=== PATIENT | male | born 1925 | race Caucasian/White ===

== ENCOUNTER → 2016-11-30 | Outpatient (CLI) | payer OTHER ==
[~2016-11-30] MED LIST: CITA40TA4 PO; DFL100 PO; DIAZ2TAB PO; DUTA0.5C PO; FLM4 PO; FLUO20CA35 PO; GENT0.3S6 OP; GLC/500 PO; LISI10TA PO; LORA10CA2 PO; LUTE15CA PO; LVQ500 PO; MORP15TA PO; MRLP17X PO; MTR500 PO; MULT-610 PO; OMEP40CA41 PO; ONDA8TAB62 SL; PRED-301 PO; SIMV10TA2 PO; zpack
--- NOTE | 2016-11-30 12:59 | DIAGNOSTIC IMAGING REPORT ---
BILATERAL CAROTID DOPPLER STUDY HISTORY: NEOPLASM OF PAROTID GLAND COMPARISON: None. TECHNIQUE: Real-time, grayscale, and color Doppler sonography of the carotid arteries was performed. Imaging reviewed in the transverse and longitudinal planes. All measurements were calculated based on NASCET criteria. FINDINGS: Antegrade flow is seen in the bilateral vertebral arteries. The brachial pressures are hemodynamically similar. Moderate plaque formation bilaterally The peak systolic velocity within the right ICA is 76. The right systolic ratio is 0.9. The peak systolic velocity within the left ICA is 79. The left systolic ratio is 1.0. IMPRESSION: No hemodynamically significant stenosis seen within the carotid arteries. Mild plaque formation bilaterally Electronically signed by: Naveen South M.D. 11/30/2016 12:58 PM Dictated Date/Time: 11/30/2016 12:57 PM
--- NOTE | 2016-12-06 07:40 | CODING QUERY MEDICAL NECESSITY ---
SUPPORTING DIAGNOSIS NEEDED A supporting diagnosis is required for the test/procedure performed on this patient in order for us to be reimbursed by the patient's insurance. Please provide a supporting diagnosis for the following test/procedure listed below next to the test name along with your signature. *If there is no additional diagnosis for this patient that would support the following test/procedure please document that below next to the test/procedure. Test(s)/Procedure(s) that require a supporting diagnosis: * CAROTID DOPPLER DUPLEX NECK DIAGNOSIS: * DOS: 11/30/16 Provider Signature: Date: Thank you Rubia Wyman Health Information Management Once completed, please kindly fax back to [phone] For questions please call [phone]
== END | disposition home or self-care (01) ==
LOC: C.ULTR 12:14
PROVIDERS: ATTEND Radiology Radiation Oncology
DX: C07 Malignant neoplasm of parotid gland (principal)

== ENCOUNTER 2017-01-11 11:57 | Inpatient (IN) | payer OTHER ==
[~2017-01-11] VITALS: Ht 175.3 cm; Wt 63.7 kg
[~2017-01-11 11:57] MED LIST changes: -DFL100 PO; -GENT0.3S6 OP; -LVQ500 PO; -MORP15TA PO; -MRLP17X PO; -MTR500 PO; -OMEP40CA41 PO; -ONDA8TAB62 SL; -PRED-301 PO
[2017-01-11 13:05] VITALS: BP 133/85; PULSE 86; TEMP 36; O2SAT 96; BMI 21.3
[2017-01-11] MEDS ORDERED: ONDANSETRON INJ 2 MG/ML 2 ML VIAL IV PRN (14:30)
[2017-01-11] MEDS ORDERED: ACETAMINOPHEN 325 MG TAB PO PRN (14:30)
[2017-01-11] MEDS ORDERED: POLYETHYLENE (MIRALAX) 17 GM PACK PO PRN (14:30)
[2017-01-11] MEDS ORDERED: MAGNESIUM HYDROXIDE SUSP 30 ML UDC PO PRN (14:30)
[2017-01-11] MEDS ORDERED: SODIUM CHLORIDE 0.9% 500ML 500 ML IV STA (14:53)
[2017-01-11] MEDS ORDERED: MAGIC SWIZZLE PO SCH (15:00)
--- NOTE | 2017-01-11 15:15 | History and Physical ---
History & Physical Date & Time of Service: Jan 11, 2017 at 14:56 Chief Complaint: Orthostatic Hypotension, Failure To Thrive Primary Care Physician: Tayla Leggett C.R.N.P. History of Present Illness Source: patient, family, clinic records, hospital records This patient is a pleasant 89-year-old male that is directly admitted to the hospital from his primary care physician's office with decreased appetite and weight loss. The patient reports losing about 30 pounds over the last few weeks. He says that he just does not have an appetite. Nothing seems to taste good. Patient also notes throat discomfort, which is also impeding his diet. The patient has a history of adenocarcinoma of the right parotid gland and also a mass on the right side of his nose. He has had this mass on the right side of his nose for approximately 20 years. He was told that it would be slow growing. The mass has now completely invaded the right nostril and is pushing on the left. The patient cannot breathe at all out of his nose. He has a difficult time eating because of this. The patient's family notes that he has been choking trying to eat. He denies any fever or chills. No cough. Denies any nausea or vomiting. No changes in bowel habits. Approximately 2 months ago , the patient was evaluated in the emergency department for epistaxis. He was seen by ENT. It was recommended that he be transferred to a tertiary care center. The patient underwent a biopsy at that time that confirmed his diagnosis. Postoperatively, the patient had urinary retention. He denies any difficulty urinating now. He denies any hematuria. He does note intermittent bleeding from the left nare. 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 Reportedly of old age. 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.) Allergies Coded Allergies: Penicillins (Unverified Allergy, Unknown, Swells up, 09/05/16) Home Medications Scheduled Diazepam (Valium), 2.5 MG PO BID Dutasteride (Avodart), 1 CAP PO HS Fluoxetine (Prozac), 60 MG PO HS Lisinopril (Prinivil), 10 MG PO DAILY Lutein-Zeaxanthin (Lutein), 1 CAP PO DAILY Metformin Hcl (Glucophage), 250 MG PO BID Simvastatin (Zocor), 1 TAB PO HS Tamsulosin HCl (Tamsulosin HCl), 0.4 MG PO DAILY Review of Systems 10 system review performed and negative unless noted in HPI or below Physical Exam Vital Signs Date Time Temp Pulse Resp B/P Pulse Ox O2 Delivery O2 Flow Rate FiO2 01/11/17 13:05 36.0 86 16 133/85 96 Room Air VITALS: Vitals are noted on the nurse's note and reviewed by myself. Vital signs stable. GENERAL: 89-year-old male, resting in bed. SKIN: The skin was warm and dry HEAD: Normocephalic atraumatic. EYES: Purulent discharge noted from the eyes bilaterally. Conjunctivae injected bilaterally. NOSE: Very large mass noted on the right nostril extending through the septum to the left nostril. Neither nares patent. Some bloody discharge noted MOUTH: Mucous membranes very dry. White plaque noted on the hard and soft palate. Erythema noted. NECK: Large right-sided mass noted on the right lateral neck. Firm, nonmobile. HEART: Regular rate and rhythm without murmurs gallops or rubs. LUNGS: Clear to auscultation bilaterally without wheezes, rales or rhonchi. No accessory muscle use. ABDOMEN: Positive bowel sounds x 4.Soft, nontender, without organomegaly. No guarding or rebound tenderness. MUSCULOSKELETAL: No erythema, edema or tenderness noted in the lower extremities bilaterally. Strength 5/5 throughout. NEURO: Patient was alert and oriented to person place and time. Normal sensation to touch. No focal neurological deficits. Diagnostics Diagnostic Radiology CHEST 2 VIEWS ROUTINE HISTORY: COUGH,NAUSEA,MALAISE,FATIGUE COMPARISON: None. FINDINGS: The lungs are hyperexpanded with mild apical predominant emphysematous changes. The heart is normal in size. Tortuous thoracic aorta. S-shaped scoliosis of the thoracolumbar spine. No pleural effusions. No pneumothorax. Mild interstitial thickening at the lung bases is likely chronic. Linear scarlike density overlying the right hilum. Symmetric nodular densities at the periphery of the lung bases favor nipple shadows. IMPRESSION: Chronic changes as described above. No acute process within the chest. Electronically signed by: Dusty Robles M.D. 01/11/2017 12:44 PM Dictated Date/Time: 01/11/2017 12:40 PM The status of this report is Signed. Draft = Not yet reviewed or approved by Radiologist. Signed = Reviewed and approved by Radiologist. <AttendingPhy>Tayla Leggett C.R.N.P.</AttendingPhy> <FamilyPhy>Tayla Leggett C.R.N.P.</FamilyPhy> <PrimaryPhy>Tayla Leggett C.R.N.P.</ PrimaryPhy> <UnitNumber>[id number]</UnitNumber> <VisitNumber>[id number]</ VisitNumber> <PatientName>POOL RIVAS</PatientName> <DateOfBirth>1925</ DateOfBirth> <Location>[facility]</Location> <ServiceDate>01/11/17</ServiceDate> <MNE >ESINDI</MNE> <OrderingPhy>Tayla Leggett.R.N.P.</OrderingPhy> < OrderingPhyMNE>f rep ord dr sahu</OrderingPhyMNE> <DictatingPhyMNE>f rep dict dr sahu</DictatingPhyMNE> <CCListMNE>f rep ct mne</CCListMNE> <AdmittingPhyMNE>f pt admit dr sahu</AdmittingPhyMNE> <AttendingPhyMNE>f pt attend dr sahu</ AttendingPhyMNE> Impression Assessment and Plan 89-year-old male with a history of adenocarcinoma of the right nose and right parotid gland presents with weight loss and failure to thrive at home Weight loss/poor appetite-likely secondary to discomfort with eating -Admit to oncology floor -CBC, CMP and magnesium -Speech evaluate and treat -Magic swizzle every 4 hours -Pured diet for now -Rule out infectious sources such as UTI White plaque on the palate-? Meg versus excoriation from radiation -Consider starting fluconazole 400 mg x 1 then 200 mg daily x 14 days HTN -Continue lisinopril 10 mg daily diabetes mellitus -Continue Metformin 250 mg po BID -follow BSGs AC, HS and with meals -insulin sliding scale Parotid/Nasal adenoCA -palliative care consult -ENT consult to see if there is anything to do about epistaxis Conjunctivitis -begin Erythromycin drops TID Depression -Continue Prozac 60 HS -Valium 2.5 mg po BID Urinary retention -Continue Avodart 0.5 mg daily DVT prophylaxis -chemical means contraindicated due to risk of epistaxis -TEDS, SCDs CODE STATUS -LEVEL I FULL CODE Level of Care Oncology Advanced Directives Existing Living Will: Yes Existing Power of Nutrition Program Instructor: Yes Resuscitation Status DO NOT RESUSCITATE VTE Prophylaxis VTE Risk Assessment Done? Y/N: Yes Risk Level: Low Given or contraindicated: T.ELataDLata Stockings, SCD's, Contraindicated Assessment and Plan Attending Addendum: I have physically seen and examined this patient, have directed their medical care, have supervised the PA's activity, and agree with the H&P as noted above, with the following changes: NONE. The patient is awake, alert and oriented 3, lying in bed and in no acute distress. HEENT--PERRL, enlarged right parotid gland, severely enlarged bulbous lesion right side of nose. Neck-- no JVD or bruits, thyroid normal, enlarged anterior cervical lymph nodes and enlarged parotid gland. Heart--normal S1 and S2, no extra beats, no murmurs, rubs or gallops. Lungs--clear bilaterally with good air movement, no respiratory distress, no accessory muscle use. Abdomen--normal bowel sounds and soft, nontender and nondistended, no hernias or masses, no organomegaly. Extremities--no cyanosis, clubbing or edema. There are good distal pulses b/l. Dermatologic--normal skin turgor, normal color, warm and dry, no abnormal lymph nodes, no rash. Neurologic--cranial nerves II through XII grossly intact, motor and sensory examination normal. Rheumatologic--normal range of motion, nontender, muscles and joints. Psychiatric--normal affect. 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 We'll consult ENT as family would like to know if there is anything that can be done to help prevent bleeding. We 'll order a palliative care consult as well. Patient has been offered surgery and chemotherapy in the past, and has refused both. He'll being covered empirically for accompanying infectious process with Vanco IV, cefepime IV and fluconazole IV. Hypertension--continue lisinopril 10 mg by mouth daily with hold parameters. Diabetes mellitus --hold metformin. Placement Accu-Cheks before meals and at bedtime with NovoLog coverage. Depression--continue Prozac 60 mg by mouth at bedtime and Valium 2.5 mg by mouth twice a day. BPH--continue Avodart 0.5 mg by mouth daily.
[2017-01-11 15:59] VITALS: BP 119/81; PULSE 88; TEMP 36.7; O2SAT 97
[2017-01-11] MEDS ORDERED: OPTIRAY 320 IV PRN (16:00)
[2017-01-11] MEDS ORDERED: VANCOMYCIN CONSULT ACTIVE PRN (16:00)
[2017-01-11] MEDS ORDERED: CEFEPIME CONSULT ACTIVE PRN ×2 (16:00)
[2017-01-11] MEDS: LIDOCAINE HCL 2% VISCOUS SOLN 60 ML, DiphenhydrAMINE HCL SYRUP 150 MG, ALUMINUM/MAGNESI... MT SCH ×8 (16:07→19:37)
[2017-01-11] MEDS: FLUCONAZOLE / NSS 200 MG in PREMIXED NSS 100 ML IV SCH (16:07)
--- NOTE | 2017-01-11 16:29 | Pharmacy Progress Note ---
Pharmacy Antibiotic Consult Date of Service: Jan 11, 2017. Pharmacy Dosing Scope Pharmacy is consulted to initiate Vancomycin + Cefepime IV dosing therapy, order appropriate labs and adjust drug dose/frequency. Subjective The patient is a 89 year old male admitted on Jan 11, 2017 at 12:38 with weight loss and poor appetite in the setting of adenocarcinoma of the right nasal and parotid gland. PMH significant for HTN and DM. Objective Height (Feet): 5 Height (Inches): 8.00 Weight (Kilograms): 63.400 Assessment & Plan Assessment 89 year old male ordered empiric antibiotics for treatment of possible EENT infection in the setting of nasal/parotid adenocarcinoma. Patient is afebrile with normal WBC count. Plan Vancomycin + Cefepime Vancomycin IV dosing * Loading dose: 1600 mg (25 mg/kg) IV * Maintenance dose: 1100 mg (17.3 mg/kg) IV every 24 hours * Goal trough level estimate for empiric treatment: between 15 - 20 mcg/mL. * Trough level has been ordered for: . Cefepime * Dose of 2g IV every 12 hours reduced to 2g IV every 24 hours for CrCl 30-60 mL /min. Pharmacy will continue to follow and will adjust dose/frequency as necessary. Thank you
--- NOTE | 2017-01-11 16:42 | ENT CONSULTATION ---
DATE OF CONSULTATION: 01/11/2017 DATE OF CONSULTATION: 01/11/2017. 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 HISTORY OF PRESENT ILLNESS: The patient complained of nasal obstruction after recent radiation treatment for his diagnosed adenocarcinoma of the right parotid after excision of benign mixed tumor 40 years ago in [place]. Ten years ago he developed a growth right side of nose, never excised, now occludes the right nostril. He now has recurrent epistaxis, saw another ENT here last time, now admitted for epistaxis and refuses any sort of surgery per him and . PAST MEDICAL HISTORY: Macular degeneration. ALLERGIES: PENICILLIN. FAMILY HISTORY: Negative. SOCIAL HISTORY: Former smoker. MEDICATIONS: As noted on chart. PHYSICAL EXAMINATION: GENERAL: Elderly male who is alert, oriented and cooperative in no acute distress. He does have nasal obstruction and breathing through his mouth. HEAD: Normocephalic. EYES: Normal. EARS: The right side shows a large parotid mass involving the right mandible. The right naris has a large mass extending through the right nasal bone and extending into the nasal cavity. He also has severe crusting and obstruction of the left naris. 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 Second lesion in right nasal cavity. RECOMMENDATIONS: Evidently, the patient is getting a CT scan. I will review the CT scan. At this point, I can actually make epistaxis worse by any kind of surgical intervention, so no surgical intervention is contemplated. ERICKA
[2017-01-11] MEDS: SODIUM CHLORIDE 0.9% 1000ML 1,000 ML IV SCH (16:56)
[2017-01-11] MEDS ORDERED: CEFEPIME IV 2,000 MG in DEXTROSE 5% 100ML 100 ML IV SCH (17:00)
[2017-01-11] MEDS ORDERED: METFORMIN HCL 500 MG TAB PO SCH (17:00)
--- NOTE | 2017-01-11 17:14 | DIAGNOSTIC IMAGING REPORT ---
CT OF THE HEAD WITH AND WITHOUT CONTRAST CLINICAL HISTORY: Parotid and nasal cavity pleomorphic adenoma TECHNIQUE: Axial images of the head were obtained before and after intravenous ministration of 116 cc Optiray 320 IV. COMPARISON STUDY: MRI of the brain September 09, 2016. FINDINGS: No acute intracranial hemorrhage, midline shift or mass effect is present. Ventricular system is stable. The basilar cisterns are patent. There are no extra-axial collections. There are no findings to suggest acute dural sinus thrombosis or acute territorial infarct. Bony erosion of right skull base foramina is noted, as shown on MRI of September 09, 2016. There is intracranial extension of tumor which is better depicted on the neck CT. As before, the right mastoid air cells are opacified. No parenchymal metastases are identified. A 1.7 x 0.7 cm right frontotemporal scalp lesion is unchanged. IMPRESSION: 1. No acute intracranial findings. 2. Redemonstration of bony erosion of right skull base foramina with intracranial extension of tumor, as shown on MRI of September 09, 2016. This is better depicted on the neck CT. Please see that report for further description. 3. Opacified right mastoid air cells, unchanged since prior MRI. Electronically signed by: Aime Polk M.D. 01/11/2017 5:13 PM Dictated Date/Time: 01/11/2017 5:03 PM
--- NOTE | 2017-01-11 17:21 | DIAGNOSTIC IMAGING REPORT ---
CT OF THE NECK WITH CONTRAST CT DOSE: 1387.07 mGy.cm CLINICAL HISTORY: Parotid and nasal cavity pleomorphic adenoma TECHNIQUE: Axial images of the neck were obtained following intravenous injection of 116 cc Optiray 320 IV. COMPARISON STUDY: MRI September 09, 2016. FINDINGS: Multiple enhancing masses within and adjacent to the right parotid gland are noted. The majority of these have slightly decreased in size since MRI of September 09, 2016. The dominant mass measures 3.5 x 3 cm. It previously measured 3.7 x 3.2 cm. Additional lesions have slightly decreased in size and enhancement since prior MRI allowing for differences in technique. Extension through the right skull base foramina into the right middle cranial fossa is again noted. There is associated bony destruction which was shown on prior MRI. The bulk of the tumor has likely slightly diminished since prior exam. A 4 x 3.9 cm mass arising from the right aspect of the nose is similar in size to prior exam. Several small enhancing right-sided cervical lymph nodes are similar to prior MRI. Emphysema is noted within the lung apices. Visualized portions of the airway are patent. There are no suspicious osseous lesions. Major vasculature of the neck is patent although the right internal jugular vein is narrowed in portions. IMPRESSION: 1. Numerous enhancing masses within and adjacent to the right parotid gland consistent with malignancy. The dominant mass has slightly decreased in size and enhancement since MRI of September 09, 2016. Redemonstration of bony erosion with intracranial extension through right skull base foramina into the middle cranial fossa, as shown on MRI. 2. No significant change in the destructive mass involving the right aspect of the nose. Electronically signed by: Aime Polk M.D. 01/11/2017 5:20 PM Dictated Date/Time: 01/11/2017 5:13 PM
[2017-01-11] MEDS ORDERED: VANCOMYCIN INJ 1,600 MG in SODIUM CHLORIDE 0.9% 500ML 500 ML IV ONE (17:30)
[2017-01-11] MEDS: INSULIN ASPART 100 UNITS/ML 3 ML PEN SC SCH ×2 (18:00→20:53)
[2017-01-11] MEDS ORDERED: NURSING VERBAL MED ORDER ONE (18:30)
[2017-01-11] MEDS: SILVER SULFADIAZINE 1% EXT SCH (19:37)
[2017-01-11] MEDS: ERYTHROMYCIN OP OINT 1 GM PKT OP SCH (19:38)
[2017-01-11 20:21] VITALS: BP 132/81; PULSE 83; TEMP 37.2; O2SAT 95
[2017-01-11] MEDS: DUTASTERIDE TAMSULOSIN HCL PO SCH (20:55)
[2017-01-11] MEDS: SIMVASTATIN 10 MG TAB PO SCH (20:55)
[2017-01-11] MEDS: FLUOXETINE HCL 20 MG CAP PO SCH (20:55)
[2017-01-11] MEDS: DIAZEPAM 5MG TAB PO SCH (20:56)
[2017-01-12 00:31] VITALS: BP 166/99; PULSE 94; TEMP 37; O2SAT 96
[2017-01-12] MEDS: SODIUM CHLORIDE 0.9% 1000ML 1,000 ML IV SCH (01:17)
[2017-01-12 04:37] VITALS: BP 91/57; PULSE 88; TEMP 36.8; O2SAT 94
[2017-01-12 06:22] VITALS: BMI 21.5
[2017-01-12] MEDS: INSULIN ASPART 100 UNITS/ML 3 ML PEN SC SCH ×4 (06:30→21:00)
[2017-01-12 07:24] VITALS: BP 145/95; PULSE 90; TEMP 36.7; O2SAT 95
[2017-01-12] MEDS: DIAZEPAM 5MG TAB PO SCH ×2 (08:00→19:47)
[2017-01-12] MEDS ORDERED: TAMSULOSIN HCL 0.4 MG CAP PO SCH (08:00)
--- NOTE | 2017-01-12 08:40 | Clinical Documentation Query ---
CLINICAL DOCUMENTATION QUERY 89-year-old male that is directly admitted to the hospital from his primary care physician's office with decreased appetite and weight loss. In your clinical opinion is this patient being managed for: ( x ) Severe malnutrition in setting of adenocarcinoma of the right nose, jaw, and right parotid gland ( ) Other explanation of clinical findings (Please Explain) ( ) Unable to determine (Please Define) ( ) Need to Discuss ( ) Not Agree The medical record reflects the following clinical findings, treatment, and risk factors. Clinical Indicators: The patient reports losing about 30 pounds over the last few weeks (17.6% loss of starting body weight). He says that he just does not have an appetite. Nothing seems to taste good. Patient also notes throat discomfort, which is also impeding his diet. Treatment: Full liquid diet, ENT consult, Speech therapy consult Risk Factors: Cancer Please clarify and document your clinical opinion in the progress notes and discharge summary. Terms such as "probable", "suspected", "likely", "questionable", "possible", or "still to be ruled out" are acceptable. IF IN AGREEMENT, YOU MUST DOCUMENT ABOVE DIAGNOSTIC STATEMENT IN DAILY PROGRESS NOTES AND DISCHARGE SUMMARY. This document is not part of the patient's record. Malnutrition Characteristics (2 of 6) in Acute Illness/Injury CHARACTERISTICS MODERATE MALNUTRITION SEVERE MALNUTRITION ENERGY INTAKE <75% of estimated energyrequirement for >7 days <50% of estimated energyrequirement for >5 days WEIGHT LOSS 1-2%/1 week 5%/1 month 7.5%/3 months >1-2%/1 week >5%/1 month >7.5%/3 months BODY FAT*loss of SQ fat from the orbits,triceps, or fat overlying the ribs MILD MODERATE MUSCLE MASS*muscle wasting at the temples,clavicles, shoulders, interosseousspaces,scapula, thigh, calf MILD MODERATE FLUID ACCUMULATION*localized or generalized edemaof the extremities, vulva, scrotumweight loss may be masked byedema MILD MODERATE-SEVERE [employer]ODUCT [employer]ELOPMENT MANAGER STRENGTH N/A measurably decreased perthe device's standards Thank You, Adryan English, RN [phone]
[2017-01-12] MEDS: LISINOPRIL 10 MG TAB PO SCH (08:55)
[2017-01-12] MEDS: SILVER SULFADIAZINE 1% EXT SCH ×3 (08:56→19:42)
[2017-01-12] MEDS: ERYTHROMYCIN OP OINT 1 GM PKT OP SCH ×3 (08:57→19:43)
[2017-01-12] MEDS: LIDOCAINE HCL 2% VISCOUS SOLN 60 ML, DiphenhydrAMINE HCL SYRUP 150 MG, ALUMINUM/MAGNESI... MT SCH ×16 (09:06→19:42)
[2017-01-12] MEDS ORDERED: METRONIDAZOLE 500MG / NSS IV ONE (12:30)
[2017-01-12 13:40] LABS: URINE APPEARANCE CLEAR (CLEAR); URINE BILIRUBIN NEG (NEG); URINE COLOR YELLOW; URINE NITRITE NEG (NEG); URINE SPECIFIC GRAVITY 1.005 (1.000-1.030); UROBILINOGEN NEG (NEG)
[2017-01-12 13:44] LABS: MANUAL MICROSCOPIC REQUIRED? NO; REVIEW REQ? NO
--- NOTE | 2017-01-12 14:09 | Hospitalist Progress Note ---
Hospitalist Progress Note Date of Service Jan 12, 2017. (Brittaney Macias PA-C) Subjective Pt evaluation today including: conversation w/ patient, conversation w/ family , physical exam, chart review, lab review, review of studies, review of inpatient medication list Appetite is still poor. Throat pain is slightly better. Does admit to occasional nausea. No shortness of breath. Denies any other pain besides the throat. Denies fever or chills. Notes some blood seeping from the left naris Additional Comments: 6 system review negative. Please see pertinent positives in the history of present illness section. (Brittaney Macias PA-C) Objective Vital Signs Date Time Temp Pulse Resp B/P Pulse Ox O2 Delivery O2 Flow Rate FiO2 01/12/17 08:00 Room Air 01/12/17 07:24 36.7 90 16 145/95 95 Room Air 01/12/17 04:37 36.8 88 18 91/57 94 Room Air 01/12/17 00:31 37.0 94 18 166/99 96 Room Air 01/12/17 00:00 Room Air 01/11/17 20:21 37.2 83 18 132/81 95 Room Air 01/11/17 20:00 Room Air 01/11/17 15:59 36.7 88 18 119/81 97 Room Air (Brittaney Macias PA-C) Physical Exam General Appearance: + mild distress (mildly uncomfortable), + cachetic Eyes: + pertinent finding (less drainage in redness noted to the eyes bilaterally.) ENT: + pertinent finding (very small amount of bleeding noted from the left naris) Neck: + pertinent finding (Mass to the right lateral neck unchanged) Respiratory/Chest: lungs clear Cardiovascular: regular rate, rhythm Abdomen: normal bowel sounds, non tender, soft Extremities: non-tender, no pedal edema Neurologic/Psychiatric: oriented x 3 Skin: warm/dry (Brittaney Macias PA-C) Laboratory Results 01/12/17 05:16 Test 01/12/17 05:16 01/12/17 11:34 01/12/17 13:15 Est Creatinine Clear Calc Drug Dose 44.9 ml/min Estimated GFR () 77.0 Estimated GFR (Non- 66.4 Bedside Glucose 114 mg/dl (70-99) Urine Color YELLOW Urine Appearance CLEAR (CLEAR) Urine pH 7.0 (4.5-7.5) Urine Specific [place] 1.005 (1.000-1.030) Urine Protein NEG (NEG) Urine Glucose (UA) NEG (NEG) Urine Ketones NEG (NEG) Urine Occult Blood NEG (NEG) Urine Nitrite NEG (NEG) Urine Bilirubin NEG (NEG) Urine Urobilinogen NEG (NEG) Urine Leukocyte Esterase TRACE (NEG) Urine WBC (Auto) 5-10 /hpf (0-5) Urine RBC (Auto) 0-4 /hpf (0-4) Urine Hyaline Casts (Auto) 0 /lpf (0-5) Urine Epithelial Cells (Auto) 5-10 /lpf (0-5) Urine Bacteria (Auto) NEG (NEG) Last 24 Hours Test 01/11/17 17:24 01/11/17 20:52 01/12/17 05:16 01/12/17 07:33 Bedside Glucose 111 mg/dl 116 mg/dl 115 mg/dl Creatinine 1.00 mg/dl Est Creatinine Clear Calc Drug Dose 44.9 ml/min Estimated GFR () 77.0 Estimated GFR (Non- 66.4 Test 01/12/17 11:34 01/12/17 13:15 Bedside Glucose 114 mg/dl Urine Color YELLOW Urine Appearance CLEAR Urine pH 7.0 Urine Specific [place] 1.005 Urine Protein NEG Urine Glucose (UA) NEG Urine Ketones NEG Urine Occult Blood NEG Urine Nitrite NEG Urine Bilirubin NEG Urine Urobilinogen NEG Urine Leukocyte Esterase TRACE Urine WBC (Auto) 5-10 /hpf Urine RBC (Auto) 0-4 /hpf Urine Hyaline Casts (Auto) 0 /lpf Urine Epithelial Cells (Auto) 5-10 /lpf Urine Bacteria (Auto) NEG (Brittaney Macias PA-C) Assessment and Plan 89-year-old male with a 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 Case discussed with Tayla CLAYTON -Continue vancomycin pending sensitivities ?Cellulitis on face/nose-possible necrotic tissue in nose -Continue vancomycin for now -Add Flagyl 500 mg IV q 8 hr for anaerobic coverage -d/c cefepime White plaque on the palate-? Meg versus excoriation from radiation -Continue fluconazole at current dosing. Treat for 14 days. Day # 2 -Continue Magic swizzle as noted above HTN -Continue lisinopril 10 mg daily diabetes mellitus-BSGs stable -Metformin on hold (home dose 250 mg BID) -follow BSGs AC, HS and with meals -insulin sliding scale Parotid/Nasal adenoCA -ENT consult appreciated. No surgical intervention recommended. -No more radiation per Dr. Brady -Patient's only reasonable option as hospice. Had a lengthy conversation with the patient and the patient's at the bedside. Both are on board. -Case management to [facility] outpatient services Conjunctivitis-improving -Erythromycin drops TID day 12/06 Depression -Continue Prozac 60 HS--> may possibly increase -Valium 2.5 mg po BID Urinary retention -Continue tamsulosin/dutasteride combo DVT prophylaxis -chemical means contraindicated due to risk of epistaxis -TEDS, SCDs CODE STATUS -LEVEL V DO NO RESUSCITATE DISPO -Home with hospice likely after treating acute illness (Brittaney Macias, EDU) Attending Attestation: Pt seen/examined with TATIANA Macias. Chart reviewed. I agree w/ the sánchez components of her documentation. Pt overall feels ok today No major nose bleeding. Denies pain. LENGTHY discussion held today with pt/ at bedside discussing options for care including hospice. VSS no fever gen - NAD eyes - conjunctival injection with purulent discharge b/l nose - large mass on right side of nose with overlying erythema; b/l nares with purulent drainage & crusting; mild serous drainage from left nare; nasal architecture is distorted due to the mass face - large right parotid mass taking up much of the right face mouth - purulent material on posterior pharyngeal wall and palate; ?thrush as well heart - RRR lungs - CTA b/l A/P: 1. right parotid gland cancer 2. cancer of the nose 3. protein calorie malnutrition, severe 4. anorexia with failure to thrive 2nd to cancer 5. probable superimposed infectious process of the eyes, nasal cavity 6. possible thrush 7. enterococcal UTI stop cefepime cont vanco for facial infection and UTI add flagyl for anaerobic coverage MRSA swab from nose pain control, if needed appreciate ENT consult at conclusion of discussion with pt/ he confirms he is a DNR and would likely want to pursue hospice at d/c SW to be consulted to assist w/ such time 40 minutes Torrey Dominguez MD (Torrey Dominguez MD)
[2017-01-12] MEDS: VANCOMYCIN INJ 1,100 MG in SODIUM CHLORIDE 0.9% 250ML 250 ML IV SCH (14:37)
--- NOTE | 2017-01-12 15:23 | ENT PROGRESS NOTE ---
DATE: 01/11/2017 DATE: 01/12/2017. SUBJECTIVE: Minimal bleeding from the nostril. OBJECTIVE: The right nasal mass is still present crusting inside the nose but no active bleeding. ASSESSMENT: Right parotid lesion with extension into the pterygopalatine space and the middle fossa and separate right nasal cavity tumor. RECOMMENDATIONS: Three options were explained to the patient and his . This is #1: 1. Excision of the right nasal tumor to stop the bleeding. 2. Packing the nose. 3. Arterial embolization of the internal maxillary artery if he continues to have episodes of epistaxis. This would probably have to be done at [place] or another tertiary center. They appear to understand and will decide if anything needs to be done. I will sign off on Mr. Crooks for right now unless he has any further bleeding.
[2017-01-12 15:52] VITALS: BP_SYST 130; BP_SYST 142; BP_DIAS 80; BP_DIAS 86; BP_DIAS 88; PULSE 80; TEMP 36.8; O2SAT 96
[2017-01-12] MEDS: FLUCONAZOLE / NSS 200 MG in PREMIXED NSS 100 ML IV SCH (16:32)
[2017-01-12] MEDS: METRONIDAZOLE 500MG / NSS IV SCH (19:53)
[2017-01-12 20:22] VITALS: BP 147/87; PULSE 84; TEMP 36.5; O2SAT 95
[2017-01-12] MEDS: DUTASTERIDE TAMSULOSIN HCL PO SCH (21:08)
[2017-01-12] MEDS: SIMVASTATIN 10 MG TAB PO SCH (21:09)
[2017-01-12] MEDS: FLUOXETINE HCL 20 MG CAP PO SCH (21:09)
[2017-01-12 23:49] VITALS: BP 163/98; PULSE 85; TEMP 37.1; O2SAT 96
[2017-01-13] MEDS: METRONIDAZOLE 500MG / NSS IV SCH ×3 (03:56→19:45)
[2017-01-13 04:21] VITALS: BP 152/96; PULSE 84; TEMP 36.7; O2SAT 96
[2017-01-13 07:16] VITALS: BP 153/84; PULSE 79; TEMP 36.6; O2SAT 96
[2017-01-13 08:09] LABS: BUN/CREATININE RATIO 10.6 (10-20); CALCIUM 8.6 mg/dl (8.5-10.1); CREATININE 0.93 mg/dl (0.60-1.40); POTASSIUM 3.5 mmol/L (3.5-5.1)
[2017-01-13] MEDS: LIDOCAINE HCL 2% VISCOUS SOLN 60 ML, DiphenhydrAMINE HCL SYRUP 150 MG, ALUMINUM/MAGNESI... MT SCH ×16 (09:02→19:45)
[2017-01-13] MEDS: ERYTHROMYCIN OP OINT 1 GM PKT OP SCH ×3 (09:03→19:45)
[2017-01-13] MEDS: LISINOPRIL 10 MG TAB PO SCH (09:03)
[2017-01-13] MEDS: SILVER SULFADIAZINE 1% EXT SCH ×3 (09:04→19:45)
[2017-01-13] MEDS: INSULIN ASPART 100 UNITS/ML 3 ML PEN SC SCH ×4 (09:04→20:58)
[2017-01-13] MEDS: DIAZEPAM 5MG TAB PO SCH ×2 (09:10→19:45)
[2017-01-13 11:30] VITALS: BP 157/93; PULSE 94; TEMP 36.9; O2SAT 94
[2017-01-13] MEDS: VANCOMYCIN INJ 1,100 MG in SODIUM CHLORIDE 0.9% 250ML 250 ML IV SCH (13:36)
--- NOTE | 2017-01-13 14:16 | Hospitalist Progress Note ---
Hospitalist Progress Note Date of Service Jan 13, 2017. (Brittaney Macias PA-C) Subjective Pt evaluation today including: conversation w/ patient, conversation w/ family , physical exam, chart review, lab review, review of inpatient medication list Patient reports being tired today. Still very weak. This progressively worse. Having difficulties walking to the bathroom now. Sleeping a lot according to the . Complaining of continued throat pain. Denies any abdominal pain. Does occasionally feel nauseated when eating. Refusing to eat according to the . He only has been drinking diet ice tea. Additional Comments: 6 system review negative. Please see pertinent positives in the history of present illness section. (Brittaney Macias PA-C) Objective Vital Signs Date Time Temp Pulse Resp B/P Pulse Ox O2 Delivery O2 Flow Rate FiO2 01/13/17 11:30 36.9 94 18 157/93 94 Room Air 01/13/17 09:00 Room Air 01/13/17 07:16 36.6 79 20 153/84 96 Room Air 01/13/17 04:21 36.7 84 20 152/96 96 Room Air 01/13/17 00:00 Room Air 01/12/17 23:49 37.1 85 20 163/98 96 Room Air 01/12/17 20:22 36.5 84 18 147/87 95 Room Air 01/12/17 15:52 36.8 80 16 142/86 96 Room Air 130/88 130/80 01/12/17 15:20 Room Air (Brittaney Macias PA-C) Physical Exam General Appearance: + pertinent finding (chronically ill in appearance. Very fatigued.) Eyes: + pertinent finding (decreased purulent discharge from the eyes bilaterally.) ENT: + pertinent finding (possibly slight decreased erythema of the nasal mass and associated induration of the right cheek. White plaque on the soft palate is improved. There are new areas of excoriation with slight oozing of blood. Oral mucosa very dry.) Neck: no JVD Respiratory/Chest: lungs clear Cardiovascular: regular rate, rhythm Abdomen: normal bowel sounds, non tender, soft Extremities: non-tender, no pedal edema Neurologic/Psychiatric: oriented x 3, + pertinent finding (overall fatigue) Skin: warm/dry (appears dehydrated) (Brittaney Macias PA-C) Laboratory Results 01/13/17 06:35 Test 01/13/17 06:35 01/13/17 11:49 Anion Gap 8.0 mmol/L (3-11) Est Creatinine Clear Calc Drug Dose 48.8 ml/min Estimated GFR () 84.1 Estimated GFR (Non- 72.5 BUN/Creatinine Ratio 10.6 (10-20) Calcium Level 8.6 mg/dl (8.5-10.1) Bedside Glucose 138 mg/dl (70-99) Date/Time Source Procedure Growth Status 01/12/17 14:40 Nasal MRSA DNA Surveillance Screen - Final Specimen Negative for MRSA by DNA Probe Complete Last 24 Hours Test 01/12/17 16:33 01/12/17 20:23 01/13/17 06:35 01/13/17 07:45 Bedside Glucose 106 mg/dl 133 mg/dl 120 mg/dl Sodium Level 139 mmol/L Potassium Level 3.5 mmol/L Chloride Level 105 mmol/L Carbon Dioxide Level 26 mmol/L Anion Gap 8.0 mmol/L Blood Urea Nitrogen 10 mg/dl Creatinine 0.93 mg/dl Est Creatinine Clear Calc Drug Dose 48.8 ml/min Estimated GFR () 84.1 Estimated GFR (Non- 72.5 BUN/Creatinine Ratio 10.6 Random Glucose 116 mg/dl Calcium Level 8.6 mg/dl Test 01/13/17 11:49 Bedside Glucose 138 mg/dl (Brittaney Macias, PADevynC) Assessment and Plan 89-year-old male with a 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 -Continue vancomycin - I will touch base with Tayla CLAYTON regarding sensitivities today ?Cellulitis on face/minimal improvement -Continue vancomycin for now -Flagyl added yesterday for anaerobic coverage -d/c cefepime White plaque on the palate- Meg versus excoriation from radiation -Continue fluconazole at current dosing. Treat for 14 days. Day # 2/14 -Continue Magic swizzle as noted above HTN -Continue lisinopril 10 mg daily diabetes mellitus-BSGs stable -Metformin on hold (home dose 250 mg BID) -follow BSGs AC, HS and with meals -insulin sliding scale Parotid/Nasal adenoCA -ENT consult appreciated. No surgical intervention recommended. -No more radiation per Dr. Brady -Patient and patient's are on board with hospice Conjunctivitis-improving -Erythromycin drops TID day 2 Depression -Continue Prozac 60 HS -Valium 2.5 mg po BID Urinary retention -Continue tamsulosin/dutasteride combo DVT prophylaxis -chemical means contraindicated due to risk of epistaxis -TEDS, SCDs CODE STATUS -LEVEL V DO NO RESUSCITATE DISPO -Lengthy conversation with patient and the patient's at bedside today. He reports that he is "tired and at the end of his rope." Also notes that "everyone has a time." At this point, the patient is considering withdrawing IV medications -Concerned he may not be strong enough for home now -Family meeting today at 1630 Discussed with attending physician. Please see his notes below. This chart was completed in part utilizing [employer] Speech Voice Recognition software. Attempts were made to minimize the grammatical errors, random word insertions, pronoun errors and incomplete sentences. Any formal questions or concerns about the content, text or information contained within the body of this dictation should be directly addressed to the provider for clarification. (Brittaney Macias, EDU) Attending Attestation: Pt seen/examined with TATIANA Macias. Chart reviewed. I agree w/ the sánchez components of her documentation. Today I had about a 60-minute end of life discussion with Mr. Crooks, his , his step-daughter, and his step-son in law. We discussed current problems, failure to thrive, end of life issues, hospice. Pt/family all in agreement with hospice. He adamantly does NOT want SNF placement comparing such to a concentration camp. refusing meds by nursing report poor appetite VSS no fever gen - NAD, good spirits, joking and telling stories to his family eyes - conjunctival injection and purulent discharge b/l MARKEDLY improved today nose - large mass on right side of nose with overlying erythema; latter improved ; b/l nares with purulent drainage & crusting - scantly improved; mild serous drainage from left nare - resolved; nasal architecture is distorted due to the mass face - large right parotid mass taking up much of the right face with overlying erythema - no change mouth - purulent material on posterior pharyngeal wall and palate - improved; thrush plaques improved; dry oral mucosa heart - RRR lungs - CTA b/l A/P: 1. right parotid gland cancer 2. cancer of the nose with local nasal architectural destruction and previous severe epistaxis 3. protein calorie malnutrition, severe 4. anorexia with failure to thrive 2nd to cancer 5. probable superimposed infectious process of the eyes, nasal cavity 6. possible thrush - improved 7. enterococcal UTI - await cx results cont same abx for now diet/meds as tolerated and/or desired LENGTHY discussion (see above) re: end of life issues pt/family in agreement with home hospice will d/w SW in am but suspect this cannot be arranged until Monday total time today 60+ minutes Torrey Dominguez MD (Torrey Dominguez MD)
[2017-01-13 15:38] VITALS: BP 140/89; PULSE 97; TEMP 37.1; O2SAT 95
[2017-01-13] MEDS: FLUCONAZOLE / NSS 200 MG in PREMIXED NSS 100 ML IV SCH (16:32)
[2017-01-13] MEDS: DUTASTERIDE TAMSULOSIN HCL PO SCH (19:45)
[2017-01-13] MEDS: FLUOXETINE HCL 20 MG CAP PO SCH (19:46)
[2017-01-13] MEDS: SIMVASTATIN 10 MG TAB PO SCH (19:46)
[2017-01-13 20:42] VITALS: BP 145/90; PULSE 99; TEMP 37.1; O2SAT 93
[2017-01-13 23:52] VITALS: BP 145/83; PULSE 90; TEMP 36.8; O2SAT 95
[2017-01-14] VITALS (9 sets, daily range): BP systolic 128–157; BP diastolic 60–92; PULSE 77–88; TEMP 36.5–37; O2SAT 94–98; BMI 21.1
[2017-01-14] MEDS: METRONIDAZOLE 500MG / NSS IV SCH ×3 (04:26→20:16)
[2017-01-14 06:59] LABS: CREATININE 0.87 mg/dl (0.60-1.40)
[2017-01-14] MEDS: SILVER SULFADIAZINE 1% EXT SCH ×3 (08:09→20:16)
[2017-01-14] MEDS: ERYTHROMYCIN OP OINT 1 GM PKT OP SCH ×3 (08:09→20:17)
[2017-01-14] MEDS: LISINOPRIL 10 MG TAB PO SCH (08:10)
[2017-01-14] MEDS: DIAZEPAM 5MG TAB PO SCH ×2 (08:15→20:17)
[2017-01-14] MEDS: LIDOCAINE HCL 2% VISCOUS SOLN 60 ML, DiphenhydrAMINE HCL SYRUP 150 MG, ALUMINUM/MAGNESI... MT SCH ×16 (08:15→20:00)
[2017-01-14] MEDS: INSULIN ASPART 100 UNITS/ML 3 ML PEN SC SCH ×4 (08:17→20:20)
[2017-01-14] MEDS ORDERED: VANCOMYCIN TROUGH SCH (13:30)
[2017-01-14] MEDS: VANCOMYCIN INJ 1,100 MG in SODIUM CHLORIDE 0.9% 250ML 250 ML IV SCH (13:50)
[2017-01-14] MEDS: FLUCONAZOLE / NSS 200 MG in PREMIXED NSS 100 ML IV SCH (16:01)
--- NOTE | 2017-01-14 16:15 | Pharmacy Progress Note ---
Pharmacy Antibiotic Prog Note Date of Service: Jan 14, 2017. Subjective: The patient is currently receiving vancomycin 1100 mg IV every 24 hours. The patient is currently on day # 4 of vancomycin IV therapy. Objective: Height (Feet): 5 Height (Inches): 8.00 Weight (Kilograms): 62.900 Lab Results (24hrs): Laboratory Tests Test 01/14/17 05:20 Creatinine 0.87 mg/dl Assessment & Plan: Assessment * 89 yo M with cellulitis and Enterococcal UTI * Goal vancomycin trough 10-15 mcg/mL * Trough of 10 mcg/mL at lower end of goal range. Will increase dose slightly. Plan * Increase vancomycin 1250 mg IV q24h * Trough to be re-ordered if LOT > 7 days and/or if patient condition changes Pharmacy will continue to follow and will adjust dose/frequency as necessary. Thank you
[2017-01-14] MEDS: DUTASTERIDE TAMSULOSIN HCL PO SCH (20:17)
[2017-01-14] MEDS: FLUOXETINE HCL 20 MG CAP PO SCH (20:18)
[2017-01-14] MEDS: SIMVASTATIN 10 MG TAB PO SCH (20:18)
--- NOTE | 2017-01-14 21:33 | Progress Note ---
Subjective Date of Service: Jan 14, 2017. Subjective Pt evaluation today including: conversation w/ patient, conversation w/ family (step-daughter @ bedside), physical exam, chart review, lab review Pain: denies PO Intake: modestly improved today Voiding: no voiding problems no major issues overnight still in good spirits despite all that is going on no nosebleeds family has selected home nursing agency for hospice Problem List Medical Problems: (1) Epistaxis Status: Acute (2) Nasal mass Status: Acute Review of Systems Constitutional: + fatigue, No fever Respiratory: No dyspnea on exertion, No shortness of breath Cardiac: No chest pain, No orthopnea Abdomen: No pain Objective Vital Signs Date Time Temp Pulse Resp B/P Pulse Ox O2 Delivery O2 Flow Rate FiO2 01/14/17 07:28 36.6 77 18 150/81 96 Room Air 01/14/17 04:09 36.9 78 20 150/90 97 Room Air 01/14/17 00:00 Room Air 01/13/17 23:52 36.8 90 20 145/83 95 Room Air 01/13/17 20:42 37.1 99 20 145/90 93 Room Air 01/13/17 16:00 Room Air 01/13/17 15:38 37.1 97 18 140/89 95 Room Air 01/13/17 11:30 36.9 94 18 157/93 94 Room Air 01/13/17 09:00 Room Air Physical Exam General Appearance: no apparent distress Eyes: + pertinent finding (conjunctiva improving b/l with scant discharge today ) ENT: + pharyngeal erythema, + pertinent finding (MM still dry; dried mucous vs necrotic oral mucosa, right posterior throat - looks better today) Neck: no JVD, + pertinent finding (large parotid mass on right unchanged with overlying erythema ) Respiratory/Chest: lungs clear, no respiratory distress, no accessory muscle use Cardiovascular: regular rate, rhythm, no gallop, no murmur Abdomen: normal bowel sounds, non tender, soft, no organomegaly Extremities: no pedal edema Neurologic/Psychiatric: alert, oriented x 3 Skin: + pertinent finding (large nasal mass/cancer, right nose, with distortion of nasal architecture - swelling slightly better today; erythema slightly better today; no epistaxis) Laboratory Results Last 24 Hours Test 01/13/17 07:45 01/13/17 11:49 01/13/17 16:26 01/13/17 20:53 Bedside Glucose 120 mg/dl 138 mg/dl 145 mg/dl 192 mg/dl Test 01/14/17 05:20 Creatinine 0.87 mg/dl Est Creatinine Clear Calc Drug Dose 51.2 ml/min Estimated GFR () 88.7 Estimated GFR (Non- 76.5 Assessment and Plan 89yo male with: 1. right parotid gland cancer - advanced, s/p recent radiation for such. 2. cancer of the nose - chronic - but getting worse with recent epistaxis. Likely superimposed infectious process of nasal passageways. 3. protein calorie malnutrition, severe - appetite modestly improved w/ Rx of the infection and the prednisone. 4. anorexia with failure to thrive 2nd to cancer - ongoing. 5. probable superimposed infectious process of the eyes, nasal cavity - improved. Cont IV vanco + flagyl. 6. possible thrush - on diflucan; change to oral in AM. 7. enterococcal UTI - sens to levaquin, ampicillin, and vancomycin. Day #4 of abx. Cont vanco. 8. DVT proph - not necessary in light of pt's desire for hospice. home with hospice preparations underway anticipate d/c to home next 48 hours Continued [facility] stay due to: multiple IV medications needed Discharge planning: home with Hospice
[2017-01-15] VITALS (8 sets, daily range): BP systolic 152–174; BP diastolic 70–103; PULSE 73–87; TEMP 36.4–36.6; O2SAT 96–98; BMI 20.6
[2017-01-15] MEDS: METRONIDAZOLE 500MG / NSS IV SCH ×3 (03:41→20:27)
[2017-01-15] MEDS: LIDOCAINE HCL 2% VISCOUS SOLN 60 ML, DiphenhydrAMINE HCL SYRUP 150 MG, ALUMINUM/MAGNESI... MT SCH ×16 (08:00→20:45)
[2017-01-15] MEDS: ERYTHROMYCIN OP OINT 1 GM PKT OP SCH ×3 (08:01→20:32)
[2017-01-15] MEDS: DIAZEPAM 5MG TAB PO SCH ×2 (08:01→20:43)
[2017-01-15] MEDS: LISINOPRIL 10 MG TAB PO SCH (08:01)
[2017-01-15] MEDS: FLUCONAZOLE 100 MG TAB PO SCH (08:01)
[2017-01-15] MEDS: SILVER SULFADIAZINE 1% EXT SCH ×3 (08:03→20:31)
[2017-01-15] MEDS ORDERED: VANCOMYCIN INJ 1,250 MG in SODIUM CHLORIDE 0.9% 250ML 250 ML IV SCH (12:00)
[2017-01-15] MEDS: DUTASTERIDE TAMSULOSIN HCL PO SCH (20:38)
[2017-01-15] MEDS: SIMVASTATIN 10 MG TAB PO SCH (20:39)
[2017-01-15] MEDS: FLUOXETINE HCL 20 MG CAP PO SCH (20:39)
--- NOTE | 2017-01-15 23:50 | Progress Note ---
Subjective Date of Service: Jan 15, 2017. Subjective Pt evaluation today including: conversation w/ patient, conversation w/ family (, step daughter at bedside), physical exam, chart review Pain: denies PO Intake: improved!! Voiding: no voiding problems no major changes overnight taking lots of nap when awake is alert and oriented, sharing stories and cracking jokes denies pain in face/oral cavity/neck denies change in right parotid mass and nose; no epistaxis overnight Problem List Medical Problems: (1) Epistaxis Status: Acute (2) Nasal mass Status: Acute Review of Systems Constitutional: No chills, No fever Respiratory: No dyspnea on exertion, No shortness of breath Cardiac: No chest pain Objective Vital Signs Date Time Temp Pulse Resp B/P Pulse Ox O2 Delivery O2 Flow Rate FiO2 01/15/17 23:35 36.4 76 20 159/103 96 Room Air 01/15/17 19:15 36.6 84 20 160/88 98 Room Air 01/15/17 15:45 Room Air 01/15/17 15:24 36.6 73 18 152/85 96 Room Air 01/15/17 11:37 36.5 87 18 169/70 97 Room Air 01/15/17 07:45 96 Room Air 01/15/17 07:18 36.6 81 20 152/86 96 Room Air 01/15/17 03:43 36.6 85 20 153/98 96 Room Air 01/15/17 01:33 Room Air Physical Exam General Appearance: no apparent distress Eyes: + pertinent finding (copious tears but nothing purulent ) ENT: pharynx normal Neck: no JVD Respiratory/Chest: lungs clear, no respiratory distress, no accessory muscle use Cardiovascular: regular rate, rhythm, no JVD, no murmur Abdomen: normal bowel sounds, non tender, soft, no organomegaly Extremities: no pedal edema Neurologic/Psychiatric: alert, oriented x 3 Skin: + pertinent finding (large right parotid gland mass w/ overlying erythema ; latter improved. large right sided nasal mass with architectural distortion of the nose; thin serous drainage not present today. ) Laboratory Results Last 24 Hours Test 01/15/17 07:21 01/15/17 11:31 01/15/17 16:51 01/15/17 20:10 Bedside Glucose 101 mg/dl 118 mg/dl 165 mg/dl 188 mg/dl Assessment and Plan 89yo male with: 1. right parotid gland cancer - advanced, s/p recent radiation for such. 2. cancer of the nose - chronic - but getting worse with recent epistaxis. Likely superimposed infectious process of nasal passageways. d/c IV abx; change to PO. 3. protein calorie malnutrition, severe - appetite modestly improved w/ Rx of the infection and the prednisone. 4. anorexia with failure to thrive 2nd to cancer - ongoing. 5. probable superimposed infectious process of the eyes, nasal cavity - improved. Stop vanco + flagyl. Change to levaquin and flagyl. 6. possible thrush - on diflucan - improved 7. enterococcal UTI - sens to levaquin, ampicillin, and vancomycin. Day #5 of abx. D/c vanco and change to levaquin orally. 8. DVT proph - not necessary in light of pt's desire for hospice. home with hospice tomorrow we discussed a POLST form and he & his family will discuss Continued [facility] stay due to: multiple IV medications needed Discharge planning: home with Hospice
[2017-01-16 04:01] VITALS: BP 166/97; PULSE 71; TEMP 36; O2SAT 97
[2017-01-16] MEDS: METRONIDAZOLE 500 MG TAB PO SCH ×2 (06:10→14:32)
[2017-01-16 06:19] VITALS: Ht 175.3 cm; Wt 63.7 kg
[2017-01-16 07:18] VITALS: BP 146/80; PULSE 83; TEMP 36.8; O2SAT 96
[2017-01-16] MEDS ORDERED: LISINOPRIL 20 MG TAB PO SCH (08:00)
[2017-01-16] MEDS ORDERED: LEVOFLOXACIN 500 MG TAB PO SCH (08:00)
[2017-01-16] MEDS: ERYTHROMYCIN OP OINT 1 GM PKT OP SCH ×2 (08:29→14:32)
[2017-01-16 08:30] VITALS: O2SAT 96
[2017-01-16] MEDS: FLUCONAZOLE 100 MG TAB PO SCH (08:30)
[2017-01-16] MEDS: SILVER SULFADIAZINE 1% EXT SCH ×2 (08:31→14:32)
[2017-01-16] MEDS: LIDOCAINE HCL 2% VISCOUS SOLN 60 ML, DiphenhydrAMINE HCL SYRUP 150 MG, ALUMINUM/MAGNESI... MT SCH ×8 (08:37→14:37)
[2017-01-16] MEDS: DIAZEPAM 5MG TAB PO SCH (08:37)
[2017-01-16 11:28] VITALS: BP 163/83; PULSE 75; TEMP 36.4; O2SAT 96
[2017-01-16] MEDS ORDERED: DIAZ2TAB PO (13:59)
[2017-01-16] MEDS ORDERED: LVQ500 PO (13:59)
[2017-01-16] MEDS ORDERED: OMEP40CA41 PO (13:59)
[2017-01-16] MEDS ORDERED: MORP15TA PO (13:59)
[2017-01-16] MEDS ORDERED: MTR500 PO (13:59)
[2017-01-16] MEDS ORDERED: DFL100 PO (13:59)
[2017-01-16] MEDS ORDERED: PRED-301 PO (13:59)
[2017-01-16] MEDS ORDERED: MRLP17X PO (13:59)
[2017-01-16] MEDS ORDERED: GENT0.3S6 OP (14:06)
--- NOTE | 2017-01-16 14:11 | Discharge Instructions ---
Discharge Instructions Date of Service Jan 16, 2017. Admission Reason for Admission: 1. Urinary tract infection 2. Infection of eyes and nasal passageways 3. Possible thrush Discharge Discharge Diagnosis / Problem: 1. Urinary infection - resolved. 2. Infection of eyes/nose - resolved. Discharge Goals Goal(s): Decrease discomfort, Improve nutritional status, Learn about illness, Diagnostic testing, Therapeutic intervention Activity Recommendations Activity Limitations: resume your previous activity . Instructions / Follow-Up Instructions / Follow-Up From Dr. Dominguez - 1. For your urine infection and infection of the eyes/nose - * take levofloxacin for 4 days starting TOMORROW. * take metronidazole for 5 days starting TODAY. Do not drink alcohol while on this medication. * take fluconazole for 4 days starting TOMORROW. * for your eyes can use gentamicin drops for 5-7 days more then stop. 2. For appetite/swelling/pain - * Take a prednisone taper. Follow instructions on the bottle. * After the taper is complete stay on 5mg daily indefinitely. 3. For pain - * Morphine 15mg-30mg every 3 hours as needed. * note that pain killers can make you constipated; you will need to take stool softners and laxatives if taking morphine. * good choice for constipation is miralax. 4. For anxiety - * continue your valium as previous. 5. For nausea or vomiting - * take zofran tablets every 6 hours as needed. For ANY needs at home please contact [facility]. They will be able to help you and your family out any time of day. It was my pleasure caring for you! -Dr. Dominguez Current Hospital Diet Patient's current hospital diet: Diabetes Type 2 Diet Discharge Diet Recommended Diet: Diabetes Type 2 Diet Procedures Procedures Performed: CAT scan of the neck and head both showing your cancer. Pending Studies Studies pending at discharge: no Medical Emergencies . Who to Call and When: Medical Emergencies: If at any time you feel your situation is an emergency, please call 911 immediately. . Non-Emergent Contact Non-Emergency issues call your: Specialist (HOSPICE ) Call Non-Emergent contact if: temperature is above 101, your pain is not controlled, your pain is worsening, your pain is unusual for you, your pain is concerning you, wound has increased drainage, wound has increased redness, wound has increased pain, you have any medication questions . . "Provider Documentation" section prepared by Torrey Dominguez. VTE Core Measure Inpt VTE Proph given/why not?: THali. Stockings, SCD's, Contraindicated
[2017-01-16] MEDS ORDERED: ONDA8TAB62 SL (14:12)
[2017-01-16 14:17] VITALS: BP 163/83; PULSE 75; TEMP 36.4; O2SAT 96
--- NOTE | 2017-01-22 23:08 | Discharge Summary ---
Discharge Summary Date of Service Jan 22, 2017. Discharge Summary Admission Date: Jan 11, 2017 at 12:38 Discharge Date: Jan 16, 2017 Discharge Disposition: Home with services (HOSPICE) Principal Diagnosis: failure to thrive 2nd to progressive cancer Problems/Secondary Diagnoses: 1. enterococcal UTI 2. likely superimposed infectious process/cellulitis of the face and nasal passages in the setting of his two cancers 3. HTN 4. T2DM 5. BPH 6. 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 anxiety 10. protein calorie malnutrition - severe 11. dysphagia 12. possible thrush Procedures: 1. CT of the head/neck - IMPRESSION: 1. Numerous enhancing masses within and adjacent to the right parotid gland consistent with malignancy. The dominant mass has slightly decreased in size and enhancement since MRI of September 09, 2016. Redemonstration of bony erosion with intracranial extension through right skull base foramina into the middle cranial fossa, as shown on MRI. 2. No significant change in the destructive mass involving the right aspect of the nose. Consultations: ENT - Tomeka Mishra MD PT, OT Medication Reconciliation New Medications: Gentamicin Sulfate (Ophth) (Gentak) 0.3 % Cristal 1 DROPS OP Q6H, #5 ML 1 Refill use for 5-7 days then stop. May use again in the future for any recurrent infection as needed. Morphine Sulfate Ir (Morphine Sulfate Ir) 15 Mg Tab 15-30 MG PO Q3H PRN for Pain, #60 TAB 0 Refills Omeprazole (Prilosec) 40 Mg Cap 1 CAP PO QAM for 30 Days, #30 CAP 2 Refills Ondansetron Odt (Zofran Odt) 8 Mg Soltab 8 MG SL Q6H PRN for Nausea, #15 TAB 1 Refill Fluconazole (Fluconazole) 100 Mg Tab 200 MG PO QAM for 4 Days, #8 TAB 0 Refills START 01/17/17 Levofloxacin (Levofloxacin) 500 Mg Tab 500 MG PO DAILY@11 for 4 Days, #4 TAB 0 Refills START 01/17/17 Metronidazole (Metronidazole) 500 Mg Tab 500 MG PO Q8 for 5 Days, #15 TAB 0 Refills START 01/16/17 Polyethylene (Miralax) 17 Gm Pow 17 GM PO DAILY PRN for Constipation, #1 BTL 1 Refill Prednisone (Prednisone) 5 Mg Tab 5 MG PO DIRECTED, #60 TAB 1 Refill STARTING 01/17/17: TAKE 5 TABS DAY 1, 4 TABS DAY 2, 3 TABS DAY 3, 2 TABS DAY 4, THEN 1 TAB DAILY THEREAFTER. TAKE WITH FOOD. Continued Medications: Diazepam (Valium) 2 Mg Tab 2.5 MG PO BID for Anxiety, #60 TAB 0 Refills (This prescription has been renewed ) Dutasteride (Avodart) 0.5 Mg Cap 1 CAP PO HS for 30 Days, #30 CAP 5 Refills Fluoxetine (Prozac) 20 Mg Cap 60 MG PO HS, CAP Lisinopril (Prinivil) 10 Mg Tab 10 MG PO DAILY, TAB Metformin Hcl (Glucophage) 500 Mg Tab 250 MG PO BID, TAB Tamsulosin HCl (Tamsulosin HCl) 0.4 Mg Cap 0.4 MG PO DAILY Discontinued Medications: Lutein-Zeaxanthin (Lutein) 1 Cap Cap 1 CAP PO DAILY Simvastatin (Zocor) 10 Mg Tab 1 TAB PO HS for 30 Days, #30 TAB 5 Refills Discharge Exam Physical Exam: General Appearance: no apparent distress ENT: + pharyngeal erythema, + pertinent finding (resolving thrush; purulent mucous posterior pharyngeal wall as well ) Neck: + pertinent finding (right parotid gland is massive, erythematous, swollen; the parotid mass extends to the jaw and tracks along the jaw line ) Respiratory/Chest: lungs clear, no respiratory distress, no accessory muscle use Cardiovascular: regular rate, rhythm, no gallop, no murmur, normal peripheral pulses Abdomen / GI: normal bowel sounds, non tender, soft, no organomegaly Extremities: no pedal edema Neurologic/Psychiatric: alert, oriented x 3 Skin: + pertinent finding (large right-sided nasal cancer/tumor with local invasion of the right nare; there is significant distortion of the normal nasal architecture due to the mass) Hospital Course HISTORY OF PRESENT ILLNESS: Mr. Crooks is a pleasant 89-year-old male that is directly admitted to the hospital from his primary care physician's office with decreased appetite and weight loss. The patient reports losing about 30 pounds over the last few weeks. He says that he just does not have an appetite. Nothing seems to taste good. Patient also notes throat discomfort, which is also impeding his diet. The patient has a history of adenocarcinoma of the right parotid gland and also a mass on the right side of his nose. He has had this mass on the right side of his nose for approximately 20 years. He was told that it would be slow growing. The mass has now completely invaded the right nostril and is pushing on the left. The patient cannot breathe at all out of his nose. He has a difficult time eating because of this. The patient's family notes that he has been choking trying to eat. He denies any fever or chills. No cough. Denies any nausea or vomiting. No changes in bowel habits. Approximately 2 months ago , the patient was evaluated in the emergency department for epistaxis. He was seen by ENT. It was recommended that he be transferred to a tertiary care center. The patient underwent a biopsy at that time that confirmed his diagnosis. Postoperatively, the patient had urinary retention. He denies any difficulty urinating now. He denies any hematuria. He does note intermittent bleeding from the left nare. HOSPITAL COURSE: The patient was treated for a suspected cellulitis of the face, superficial nose , and potentially deeper structures within the nasal passageways with IV antibiotics and steroids. He also had a concomitant enterococcal UTI. Over the course of several days the skin of the face & nose was less swollen and less erythematous. There was also concern about thrush and he received diflucan for such. His appetite improved modestly with treatment of the above infections. Prednisone may have played a role in boosting his appetite as well. Early on in his hospitalization the subject of palliative care & hospice was discussed with the patient and his family. He and his family agreed to such, and preparations were made prior to discharge to set up home hospice services. POLST discussion was held and POLST form was completed at discharge as well. The patient will complete several more days of oral antibiotics and diflucan for his various infections. He will complete a prednisone taper, and once reaching 5mg, will continue on this dose for appetite stimulation purposes. He was seen in consult by Dr. Mishra, ENT, to see if there was anything that could be done to prevent future epistaxis and drainage from his nasal cancer. Unfortunately there was no viable or easy method to prevent such an occurrence. Dr. Mishra's opinion was consistent with specialists at [facility]. At discharge Mr. Crooks denied any pain, had no recent epistaxis, vitals were stable, and all other medical problems were stable. Due to hospice status at discharge any medications that would not provide any comfort or benefit have been discontinued. Total Time Spent: Greater than 30 minutes This includes examination of the patient, discharge planning, medication reconciliation, and communication with other providers. Discharge Instructions Please refer to the electronic Patient Visit Report (Discharge Instructions) for additional information. Follow-Up with HOSPICE at home Additional Copies To Veeral. Brady MD; Tayla Leggett C.R.N.P.
== END 2017-01-16 16:30 | disposition hospice, home (50) | DRG 146 ==
LOC: C.4E 12:38
PROVIDERS: ADMIT Family Medicine; ATTEND Internal Medicine
DX: C07 Malignant neoplasm of parotid gland (principal); E43 Unspecified severe protein-calorie malnutrition; N39.0 Urinary tract infection, site not specified; B37.0 Candidal stomatitis; L03.211 Cellulitis of face; C78.39 Secondary malignant neoplasm of other respiratory organs; I95.1 Orthostatic hypotension; R62.7 Adult failure to thrive; N40.1 Benign prostatic hyperplasia with lower urinary tract symptoms; R33.9 Retention of urine, unspecified; H35.30 Unspecified macular degeneration; I10 Essential (primary) hypertension; E11.9 Type 2 diabetes mellitus without complications; F32.9 Major depressive disorder, single episode, unspecified; Z51.5 Encounter for palliative care; M41.85 Other forms of scoliosis, thoracolumbar region; Z92.3 Personal history of irradiation; B95.2 Enterococcus as the cause of diseases classified elsewhere; Z66 Do not resuscitate; F41.9 Anxiety disorder, unspecified; Z87.891 Personal history of nicotine dependence; H10.9 Unspecified conjunctivitis; R53.83 Other fatigue; R53.81 Other malaise; R11.0 Nausea; R05 Cough

== ENCOUNTER → 2017-01-11 | Outpatient (CLI) | payer OTHER ==
[~2017-01-11] MED LIST changes: -CITA40TA4 PO
[2017-01-11 12:10] LABS: BASO % 0.4 %; BASO ABS # 0.03 K/uL (0-0.2); COMPLETE YES; EOS % 1.6 %; HEMATOCRIT 41.8 % (42-52); IG% 0.4 %; LYMPH ABS # 0.49 K/uL (1.2-3.4); MEAN CELL VOLUME 82.9 fL (80-100); MEAN CORPUSCULAR HEMOGLOBIN 28.2 pg (25-34); MONO % 11.6 %; PLATELET COUNT 211 K/uL (130-400); RED BLOOD COUNT 5.04 M/uL (4.7-6.1); WHITE BLOOD COUNT 8.19 K/uL (4.8-10.8)
[2017-01-11 12:43] LABS: ALT/SGPT 23 U/L (12-78); AST/SGOT 12 U/L (15-37); BLOOD UREA NITROGEN 15 mg/dl (7-18); BUN/CREATININE RATIO 12.9 (10-20); CALCIUM 9.3 mg/dl (8.5-10.1); CARBON DIOXIDE 29 mmol/L (21-32); CHLORIDE 102 mmol/L (98-107); GLUCOSE 115 mg/dl (70-99); SODIUM 139 mmol/L (136-145)
--- NOTE | 2017-01-11 12:45 | DIAGNOSTIC IMAGING REPORT ---
CHEST 2 VIEWS ROUTINE HISTORY: COUGH,NAUSEA,MALAISE,FATIGUE COMPARISON: None. FINDINGS: The lungs are hyperexpanded with mild apical predominant emphysematous changes. The heart is normal in size. Tortuous thoracic aorta. S-shaped scoliosis of the thoracolumbar spine. No pleural effusions. No pneumothorax. Mild interstitial thickening at the lung bases is likely chronic. Linear scarlike density overlying the right hilum. Symmetric nodular densities at the periphery of the lung bases favor nipple shadows. IMPRESSION: Chronic changes as described above. No acute process within the chest. Electronically signed by: Dusty Robles M.D. 01/11/2017 12:44 PM Dictated Date/Time: 01/11/2017 12:40 PM
[2017-01-11 12:46] LABS: ALB/GLOB RATIO 0.8 (0.9-2); ALKALINE PHOSPHATASE 67 U/L (45-117)
== END | disposition home or self-care (01) ==
LOC: C.RAD 11:44
PROVIDERS: ATTEND Nurse Practitioner Family
DX: R53.83 Other fatigue (principal); R53.81 Other malaise; R11.0 Nausea; R05 Cough